=== PATIENT | male | born 1980 | race Caucasian/White ===

== ENCOUNTER 2017-09-16 14:38 | Emergency (ER) | payer MEDICARE ==
--- NOTE | 2017-09-16 16:25 | ERPHSYRPT ---
- History of Present Illness Time Seen by Provider: 09/16/17 16:17 Source: patient Exam Limitations: no limitations Patient Subjective Stated Complaint: PT REPORTS HE TAKES NORCO AT HOME-RX BY PAIN SPECIALIST-PT REPORTS HE IS OUT OF HIS NORCO-LAST ONE TAKEN THURSDAY-DENIES INJURY-DENIES LIFTING OR PULLING-DENIES N/V/D-DENIES HEADACHE-REPORTS "PAIN EXACERBATION OF MY FIBROMALGIA" Triage Nursing Assessment: PT PINK WARM ET [id number] EASY ET NONLABORED- SPEAKING IN COMPLETE SENTENCES WITH EASE-NO BRUISING-NO ABRASIONS Physician History: The patient is a 37-year-old male complaining that he ran out of his prescribed narcotics last week. He has a pain management doctor who was on vacation at a conference last week. He hasn't been able to get a hold of the pain doctor today. He was driving home from his parents house and stated he couldn't make it back home because he hurt too much. He has chronic neck pain, low back pain , and right knee pain. He ran out of his Broadway. His past medical history is significant for fibromyalgia, osteoarthritis, rheumatoid arthritis, asthma, anxiety, hypertension, and GERD. Timing/Duration: today Severity: moderate Modifying Factors: Improves With: nothing Allergies/Adverse Reactions: No Known Drug Allergies Allergy (Verified 09/16/17 15:51) Home Medications: Clonazepam [Klonopin] 2 mg PO TID 10/16/16 [History] Flurazepam HCl [Dalmane] 30 mg PO HS 10/16/16 [History] Magnesium Oxide 400 mg [Mag-Ox 400] 400 mg PO TID 10/16/16 [History] Maprotiline HCl 75 mg PO HS 10/16/16 [History] Metoprolol Succinate 100 mg [Toprol Xl 100 MG] 100 mg PO BID 10/16/16 [ History] Tizanidine HCl 4 mg [Zanaflex 4 MG] 4 mg PO QID 10/16/16 [History] Albuterol Sulfate [Albuterol Sulfate Hfa] 18 gm IH .UNKNOWN 01/22/17 [History] Hydrocodone Bit/Acetaminophen [Broadway 7.5-325 Tablet] 1 each PO Q6HPRN PRN [History] Dutasteride 0.5 MG [Avodart 0.5 MG] 0.5 mg PO DAILY 09/16/17 [History] Icosapent Ethyl [Vascepa] 1 gm PO BID 09/16/17 [History] Lansoprazole [Prevacid] 30 mg PO DAILY 09/16/17 [History] Lisinopril 5 mg [Zestril 5 MG] 5 mg PO DAILY 09/16/17 [History] Milnacipran HCl [Savella] 50 mg PO BID 09/16/17 [History] Olanzapine Odt 5 mg [Zyprexa Zydis 5 MG] 5 mg PO DAILY 09/16/17 [History] Prazosin HCl 0.5 mg PO DAILY 09/16/17 [History] Umeclidinium Brm/Vilanterol Tr [Anoro Ellipta 62.5-25 Mcg INH] 1 each IH UD [History] Hx Tetanus, Diphtheria Vaccination/Date Given: No Hx Influenza Vaccination/Date Given: No Hx Pneumococcal Vaccination/Date Given: No Immunizations Up to Date: Yes - Review of Systems Constitutional: No Fever, No Chills Eyes: No Symptoms Ears, Nose, & Throat: No Symptoms Respiratory: No Cough, No Dyspnea Cardiac: No Chest Pain, No Edema, No Syncope Abdominal/Gastrointestinal: No Abdominal Pain, No Nausea, No Vomiting, No Diarrhea Genitourinary Symptoms: No Dysuria Musculoskeletal: Arthralgias Skin: No Rash Neurological: No Dizziness, No Focal Weakness, No Sensory Changes Psychological: No Symptoms Endocrine: No Symptoms Hematologic/Lymphatic: No Symptoms Immunological/Allergic: No Symptoms All Other Systems: Reviewed and Negative - Past Medical History Pertinent Past Medical History: Yes Neurological History: Migraines, Seizures Cardiac History: Hypertension, Other Respiratory History: COPD Endocrine Medical History: Adrenal Insufficiency Musculoskeletal History: Fibromyalgia, Osteoarthritis, Rheumatoid Arthritis Other Medical History: history of dialysis, notes being in the hospital for 2 months due to kidney insufficiency. Notes he has a "flap" in his heart. - Past Surgical History Past Surgical History: No - Social History Smoking Status: Never smoker Exposure to second hand smoke: No Drug Use: none Patient Lives Alone: No - Nursing Vital Signs Nursing Vital Signs: Initial Vital Signs Temperature 98.0 F 09/16/17 15:45 Pulse Rate 83 09/16/17 15:45 Respiratory Rate 18 09/16/17 15:45 Blood Pressure 146/97 09/16/17 15:45 O2 Sat by Pulse Oximetry 97 09/16/17 15:45 Pain Scale Pain Intensity 7 - Physical Exam General Appearance: no apparent distress, alert Eye Exam: PERRL/EOMI, eyes nml inspection Ears, Nose, Throat Exam: normal ENT inspection, TMs normal, pharynx normal, moist mucous membranes Neck Exam: normal inspection, supple, full range of motion, other (posterior tenderness) Respiratory Exam: normal breath sounds, lungs clear, No respiratory distress Cardiovascular Exam: regular rate/rhythm, normal heart sounds, normal peripheral pulses Gastrointestinal/Abdomen Exam: soft, normal bowel sounds, No tenderness, No mass Back Exam: normal inspection, normal range of motion, No CVA tenderness, No vertebral tenderness Extremity Exam: normal inspection, normal range of motion, pelvis stable, No inflammation, No joint swelling (right knee), No limited range of motion Neurologic Exam: alert, oriented x 3, cooperative, normal mood/affect, nml cerebellar function, nml station & gait, sensation nml, No motor deficits Skin Exam: normal color, warm, dry, No rash Lymphatic Exam: No adenopathy SpO2 Interpretation: normal SpO2: 97 Oxygen Delivery: Room Air - Progress Progress: improved Counseled pt/family regarding: diagnosis, need for follow-up - Departure Time of Disposition: 16:30 Departure Disposition: Home Clinical Impression: Chronic pain Condition: Stable Critical Care Time: No Referrals: GABRIELA CAGLE [Primary Care Provider] - Additional Instructions: You have chronic pain. You're being managed by a pain specialist. You were given Toradol 60 mg and Decadron 10 mg by IM injection in the ER. Follow-up with your pain specialist.
[2017-09-16] MEDS ORDERED: TORAdol 30 mg Injection IM ONE (16:30)
[2017-09-16] MEDS ORDERED: DECADRON 10MG INJ. IM ONE (16:31)
[2017-09-16] MEDS ORDERED: DECADRON 10MG INJ. ONE (16:33)
[2017-09-16] MEDS ORDERED: TORAdol 30 mg Injection ONE (16:33)
[2017-09-16 16:39] VITALS: BP 126/79; PULSE 82; O2SAT 99
== END 2017-09-16 16:42 | disposition home or self-care (01) ==
LOC: ED 14:38
DX: G89.29 Other chronic pain (principal); Z79.891 Long term (current) use of opiate analgesic; M79.7 Fibromyalgia; M19.90 Unspecified osteoarthritis, unspecified site; J44.9 Chronic obstructive pulmonary disease, unspecified
CPT/HCPCS: 96372; 99284; J1100; J1885